=== PATIENT | female | born 1995 | race Two or more races ===

== ENCOUNTER 2021-11-07 11:43 | Outpatient (REF) | payer OTHER, SELFPAY ==
[2021-11-07 13:49] LABS: MANUAL DIFF FLAG NO
[2021-11-07 13:54] LABS: Appearance Urine CLEAR; Color Urine STRAW; Glucose Urine UA NEG (NEG); Leukocyte Esterase Urine NEG (NEG); Nitrite Urine NEG (NEG); Urine Blood NEG (NEG); Urine Ketones NEG (NEG); Urine Protein NEG (NEG-TRACE)
[2021-11-07 13:55] LABS: Basophils Percent Auto 0.3 % (0-2); Eosinophils Absolute Auto 0.1 X10*3/uL (0.0-0.4); Hematocrit 36.7 % (37.0-47.0); Hemoglobin 12.1 g/dl (12.0-16.0); Imm Gran Abs Auto 0.01 X10*3/uL (0.00-0.03); Imm Gran Pct Auto 0.1 % (0.0-0.4); Lymphocytes Absolute Auto 1.9 X10*3/uL (1.2-4.9); Lymphocytes Percent Auto 25.9 % (20-40); Mean Corpuscular Volume 91.1 fL (80.0-98.0); Mean Platelet Volume 8.6 fL (9.4-12.3); Monocytes Absolute Auto 0.4 X10*3/uL (0.1-1.2); Monocytes Percent Auto 5.9 % (2-11); Neutrophils Absolute Auto 4.9 x10*3/uL (2.0-8.3); Neutrophils Percent Auto 66.8 % (45-73); Platelet Count 351 X10*3/uL (160-400); Red Blood Count 4.03 X10*6/uL (4.20-5.50); Red Cell Distribution Width 12.4 % (11.0-16.0); White Blood Count 7.3 X10*3/uL (4.8-10.8)
[2021-11-07 14:28] LABS: Anion Gap 9 (12-20); Blood Urea Nitrogen 9 mg/dL (9-16); Calcium 9.4 mg/dL (8.4-10.2); Carbon Dioxide 23 mmol/L (22-29); Chloride 109 mmol/L (96-108); Cholesterol 153 mg/dL; Estimated Glomerular Filt Rate > 60; Glucose Random 76 mg/dL (60-115); Potassium 4.2 mmol/L (3.3-5.1); Sodium 137 mmol/L (135-145)
[2021-11-08 08:26] LABS: HBS Num1 3.69 mIU/mL (0-7.99); ~HepC Num1 0.05 S/CO (0.00-0.79); ~Hepatitis B Surface Antibody NONREACTIVE (Nonreactive); ~Hepatitis C Antibody Nonreactive (Nonreactive)
[2021-11-08 09:01] LABS: Rubella IgG Antibody 2.94 Index
== END 2021-11-07 11:44 | disposition home or self-care (01) ==
LOC: HO.10HDL 11:43
PROVIDERS: Visit Provider Internal Medicine
DX: G43.909 Migraine, unspecified, not intractable, without status migrainosus (principal); Z87.442 Personal history of urinary calculi
CPT/HCPCS: 36415; 80048; 81003; 82465; 85025; 86706; 86735; 86762; 86765; 86787; 86803

== ENCOUNTER 2021-11-30 12:15 | Outpatient (REF) | payer OTHER, SELFPAY ==
[2021-12-02 11:20] LABS: TS Negative Control Passed; TS Panel A 1; TS Panel B 0; TS Positive Control Passed; TSpotTB Negative (Negative)
== END 2021-11-30 12:16 | disposition home or self-care (01) ==
LOC: HO.LAB 12:15
PROVIDERS: PCP Internal Medicine; Visit Provider Internal Medicine
DX: Z11.1 Encounter for screening for respiratory tuberculosis (principal)
CPT/HCPCS: 36415; 86481

== ENCOUNTER 2022-02-20 11:27 | Outpatient (REF) | payer OTHER, SELFPAY ==
[2022-02-20 13:31] LABS: MANUAL DIFF FLAG NO
[2022-02-20 13:40] LABS: Basophils Percent Auto 0.3 % (0-2); Eosinophils Absolute Auto 0.2 X10*3/uL (0.0-0.4); Eosinophils Percent Auto 2.5 % (0-4); Hematocrit 36.7 % (37.0-47.0); Imm Gran Abs Auto 0.02 X10*3/uL (0.00-0.03); Imm Gran Pct Auto 0.3 % (0.0-0.4); Lymphocytes Absolute Auto 2.3 X10*3/uL (1.2-4.9); Lymphocytes Percent Auto 32.5 % (20-40); Mean Corpuscular HGB Conc 32.7 g/dl (31.0-35.0); Mean Corpuscular Hemoglobin 29.9 pg (27.0-33.0); Mean Corpuscular Volume 91.5 fL (80.0-98.0); Monocytes Absolute Auto 0.7 X10*3/uL (0.1-1.2); Monocytes Percent Auto 9.3 % (2-11); Neutrophils Percent Auto 55.1 % (45-73); Platelet Count 356 X10*3/uL (160-400); Red Blood Count 4.01 X10*6/uL (4.20-5.50); Red Cell Distribution Width 12.7 % (11.0-16.0); White Blood Count 7.2 X10*3/uL (4.8-10.8)
[2022-02-20 13:43] LABS: Prothrombin Time 10.8 SEC (9.9-13.0)
[2022-02-20 13:45] LABS: Partial Thromboplastin Time 33.4 SEC (24.1-38.0)
[2022-02-20 15:51] LABS: Alanine Aminotransferase 11 U/L (0-31); Alkaline Phosphatase 62 U/L (39-117); Anion Gap 12 (12-20); Aspartate Amino Transferase 14 U/L (5-31); Bilirubin Total 0.3 mg/dL (0.0-1.0); Blood Urea Nitrogen 8 mg/dL (9-16); Calcium 9.1 mg/dL (8.4-10.2); Carbon Dioxide 23 mmol/L (22-29); Chloride 111 mmol/L (96-108); Estimated Glomerular Filt Rate > 60; Glucose Random 77 mg/dL (60-115); Potassium 4.1 mmol/L (3.3-5.1); Sodium 142 mmol/L (135-145); Total Protein 6.4 g/dL (6.5-8.0)
== END 2022-02-20 11:28 | disposition home or self-care (01) ==
LOC: HO.10HDL 11:27
PROVIDERS: Visit Provider Internal Medicine
DX: M79.81 Nontraumatic hematoma of soft tissue (principal)
CPT/HCPCS: 36415; 80053; 85025; 85610; 85730

== ENCOUNTER 2022-04-05 13:15 | Outpatient (REF) | payer OTHER, SELFPAY ==
[2022-04-05 14:29] LABS: Influenza A PCR NEGATIVE (Negative); Influenza B PCR NEGATIVE (Negative); Resp Syncy Virus RNA Qual PCR NEGATIVE (Negative); SARS COV2 PCR INHOUSE NEGATIVE (Negative)
== END 2022-04-05 13:16 | disposition home or self-care (01) ==
LOC: HO.LNP 13:15
PROVIDERS: Visit Provider Internal Medicine
DX: Z20.822 Contact with and (suspected) exposure to COVID-19 (principal); R05.9 Cough, unspecified
CPT/HCPCS: 0241U

== ENCOUNTER 2023-05-09 13:21 | Outpatient (REF) | payer OTHER, SELFPAY ==
--- NOTE | ~2023-05-09 | US_ITS ---
EXAMINATION: US VENOUS ULTRASOUND WITH DOPPLER LOWER EXTREMITY, LEFT CLINICAL INFORMATION: Left lower extremity pain and edema. COMPARISON: None available. TECHNIQUE: Ultrasound of the deep veins is performed from the hip to the calf with compression sonography and color and pulse Doppler assessment. Spectral analysis with color-flow imaging is performed. FINDINGS: There is normal venous compression and respiratory variation and augmented flow. The visualized common femoral vein, superficial femoral vein, profunda femoral vein, popliteal vein, and the trifurcation region shows no evidence of deep venous thrombosis. There is no significant popliteal fossa cyst. A nonpathologically enlarged left inguinal reniform lymph node is incidentally seen, with dimensions of 1.6 x 0.5 cm. This shows no cortical thickening and good corticomedullary differentiation. If the patient's symptoms persist, followup ultrasound in 5 days 7 days might be of value to exclude proximal propagation from a non-visualized calf vein. US/US venous duplex LE LT IMPRESSION: No DVT demonstrated in the left lower extremity.
== END 2023-05-09 13:22 | disposition home or self-care (01) ==
LOC: HO.US 13:21
PROVIDERS: PCP Internal Medicine; Visit Provider Internal Medicine
DX: R60.0 Localized edema (principal)
CPT/HCPCS: 93971

== ENCOUNTER 2023-06-05 10:23 | Outpatient (REF) | payer OTHER, SELFPAY ==
[2023-06-05 10:50] LABS: IDNOW Serial# 08D9AD1C; Strep A Nucleic Acid Positive (Negative)
== END 2023-06-05 10:24 | disposition home or self-care (01) ==
LOC: HO.LNP 10:23
PROVIDERS: Visit Provider Internal Medicine
DX: J02.9 Acute pharyngitis, unspecified (principal)
CPT/HCPCS: 87070; 87147; 87205; 87651

== ENCOUNTER 2024-09-15 13:45 | Outpatient (REF) | payer OTHER, SELFPAY | END 2024-09-15 13:46 | disposition home or self-care (01) | LOC: HO.LAB 13:45 | PROVIDERS: PCP Internal Medicine; Referring Provider Internal Medicine; Visit Provider Surgery | DX: N76.4 Abscess of vulva (principal) | CPT/HCPCS: 56405; 87070; 87205; 99202; J2004 ==

== ENCOUNTER 2024-09-15 13:45 | Outpatient (AMB) | payer OTHER, SELFPAY ==
--- NOTE | 2024-09-15 13:48 | A.OFFVIS_ITS ---
Vital Signs 09/15/24 13:56 Height 5 ft Weight 179 lb BMI 35.0 BP 117/57 L Blood Pressure Location Rt brachial Position Sitting Pulse 85 Intake Visit Reasons: cyst on vaginal lip outside Intake Note: New patient being seen for cyst on Lt labia majora. Present for 3wks ago. Patient c/o: shaving irritated site. Painful to touch. Yellowish discharge 3d ago. Reliability Specialist Required: No Accompanied by: Self / Same As Patient Allergies No Known Allergies Allergy (Verified 09/15/24 13:53) HPI Comments Details: Patient presents with a 2 to three-week history of a left para vulval abscess. She has had this on the contralateral side in the past and spontaneously drained. This wound is increasing in size, become more symptomatic, he should presents here for further evaluation. Chart was reviewed and patient evaluated. [facility] Medical History (Updated 09/15/24 @ 13:54 by KANIKA Vargas) Kidney stones Surgical History (Updated 09/15/24 @ 14:58 by Brent Chapin MD) H/O tubal ligation Social History (Updated 09/15/24 @ 13:55 by KANIKA Vargas) Alcohol intake: current Alcohol intake frequency: holidays/special occasions only Alcohol type: hard liquor Tobacco use type: Cigarette Cigarettes Per Day: 3 Physical Exam Vital Signs: Last Vital Signs Pulse 85 09/15/24 13:56 BP 117/57 L 09/15/24 13:56 BMI result Body Mass Index 35.0 Other: Patient has a roughly 4 x 3 cm left para- Vulval abscess. Office Procedures I&D Drain Details: Risks, benefits, and alternatives of incision drainage of left para-Vulval abscess were reviewed with the patient and included but not limited to bleeding, infection, recurrence, numbness, pain, scarring the patient wished to proceed. All questions answered. After appropriate positioning, abscess measuring roughly 4 x 3 cm underwent% lidocaine and Betadine prep and longitudinal incision was made. Copious amounts permanent serial retrieved. Cultures obtained. Wound was irrigated, secured hemostasis, packed, and dressing applied. Patient tolerated procedure well [id number] of Skin Abscess, complex All charges added?: Procedure code (CPT) selection complete Office Meds lidocaine 1 %-epinephrine 1:100,000 injection solution Performing Provider: Brent Chapin MD Performing Location: [facility] Administered by: Brent Chapin MD on 09/15/24 14:57 Dose Route Admin Location Dispensed Lot Number Expiration Date NDC Rd Project Manager 10 mL Infiltration 10 mL Assessment & Plan Assessment & Plan (1) Vulvar abscess: Code(s): N76.4 - Abscess of vulva Category: Surgical Plan: Patient will be given antibiotics, analgesics, VNA services through through Too in our office and will follow-up as directed or p.r.n.. Orders: Orders AMB Incision & Drainage Today N76.4 - Abscess of vulva Medications: New lidocaine-epinephrine 1 %-1:100,000 10 mL Infiltration ONCE 10 mL 0RF N76.4 - Abscess of vulva Coding Level of Care Code New Pt Level 5 (56859) Diagnoses Vulvar abscess N76.4 CPT Codes I&D Drain - Drain 2: [id number] of Skin Abscess, complex ([id number])
[2024-09-15 13:56] VITALS: BP 117/57; PULSE 85; BMI 35.0
== END 2024-09-15 14:20 | disposition home or self-care (01) ==
PROVIDERS: PCP Internal Medicine; Referring Provider Internal Medicine; Visit Provider Surgery
DX: N76.4 Abscess of vulva (principal)
CPT/HCPCS: 56405; 99204

== ENCOUNTER → 2024-09-16 15:37 | Outpatient (BNVA) | payer OTHER, SELFPAY | PROVIDERS: PCP Internal Medicine; Visit Provider Surgery ==

== ENCOUNTER 2024-10-06 13:27 | Outpatient (AMB) | payer OTHER, SELFPAY ==
--- NOTE | 2024-10-06 13:35 | MHC.OFFVIS ---
Intake Visit Reasons: Wound check~ Lt labia Intake Note: Patient here s/p abscess on Lt labia majora. Reports site healing well. Cephalexin course completed. Patient c/o: denies oozing, pain. [employer] Athletic Director Required: No Accompanied by: Self / Same As Patient Allergies No Known Allergies Allergy (Verified 10/06/24 13:36) HPI Comments Details: Patient presents for follow-up status post I&D of left perineal/vulval abscess. She has complete healing of the area she says. No further recurrence of symptoms. [facility] Medical History (Updated 09/15/24 @ 13:54 by KANIKA Vargas) Kidney stones Surgical History (Updated 10/06/24 @ 13:48 by Brent Chapin MD) H/O tubal ligation Social History (Updated 09/15/24 @ 13:55 by KANIKA Vargas) Alcohol intake: current Alcohol intake frequency: holidays/special occasions only Alcohol type: hard liquor Tobacco use type: Cigarette Cigarettes Per Day: 3 Physical Exam Other: Complete healing of perineal abscess. Assessment & Plan Assessment & Plan (1) Visit for wound check: Code(s): Z51.89 - Encounter for other specified aftercare Category: Surgical Plan Patient was doing well and will otherwise follow-up p.r.n.. Should she have any symptoms of recurrence of this, she has been instructed to contact the office. Otherwise patient will follow up p.r.n.. All questions answered. Coding Level of Care Code Global (39469) Diagnoses Visit for wound check Z51.89
--- OUTSIDE RECORDS SUMMARY | 2024-10-06 13:40 | XMS_ITS | Clinical Summary ---
Author Organization [facility] it Address [address] [place] [address] Care Team Providers Care Leather Stamper Name Role Phone Unavailable Primary Care Provider Unavailabl e Social History Tobacco Use Types Packs/Day Years Used Date Smoking Tobacco: Never Assessed Sex and Gender Information Value Date Recorded Sex Assigned at Not on file Gender Identity Not on file Sexual Orientation Not on file Plan of Treatment Health Maintenance Due Date Last Done Comments DTaP,Tdap,and Td Vaccines (1 - Tdap) 2012 Hepatitis B Vaccines (1 of 3 - 19+ 3-dose series) 2012 Cervical Cancer Screening: P ap Smear 2014 Depression Screening 08/05/2022 HIV Screening 08/05/2022 Hepatitis C Screening 08/05/2022 Social Influencers of Health Screening 08/05/2022 COVID-19 Vaccine ( - 2023-2 5 season) 2024 Influenza Vaccine (#1) 2024 HIB Vaccines Aged Out No longer eligi ble based on patient's age to complete this topic HPV Vaccines Aged Out No longer eligi ble based on patient's age to complete this topic Hepatitis A Vaccines Aged Out No long er eligible based on patient's age to complete this topic IPV Vaccines Aged Out No longer eligi ble based on patient's age to complete this topic MMR Vaccines Aged Out No longer eligi ble based on patient's age to complete this topic Meningococcal ACWY Vaccine Aged Out N o longer eligible based on patient's age to complete this topic Pneumococcal Vaccine: Pediat rics (0 to 5 Years) and At-Risk Patients (6 to 64 Years) Aged Out No longer eligible b ased on patient's age to complete this topic RSV Immunization Patients Un jaswinder 20 months Aged Out No longer eligible b ased on patient's age to complete this topic Varicella Vaccines Aged Out No longer eligible based on patient's age to complete this topic
== END 2024-10-06 13:58 | disposition home or self-care (01) ==
PROVIDERS: PCP Internal Medicine; Visit Provider Surgery
DX: Z51.89 Encounter for other specified aftercare (principal)
CPT/HCPCS: 99024

== ENCOUNTER → 2024-10-06 13:27 | Outpatient (BNVA) | payer OTHER, SELFPAY | PROVIDERS: PCP Internal Medicine; Visit Provider Surgery | DX: Z09 Encounter for follow-up examination after completed treatment for conditions other than malignant neoplasm (principal); Z87.2 Personal history of diseases of the skin and subcutaneous tissue | CPT/HCPCS: 99212 ==